=== PATIENT | female | born 1970 | race African-American/Black ===

== ENCOUNTER 2018-10-01 21:28 | Emergency (ER) | payer SELFPAY ==
[~2018-10-01] VITALS: Ht 157.5 cm; Wt 49.9 kg
[2018-10-01 21:40] VITALS: BP 164/95
--- NOTE | 2018-10-01 21:40 | NUR ---
ED Nurse Note: pt ambulated to ed d/t chronic pancreatitis pain. pt states it started on thursday. pt has been experiencing nasuea and vomiting.
--- NOTE | 2018-10-01 21:55 | Emergency Room Report ---
History of Present Illness General Chief Complaint: Abdominal Pain Source: Patient Present Illness HPI This is a 48-year-old female history of diabetes and chronic pancreatitis secondary to alcohol abuse. Last alcohol use was over 2 years ago. She stated she get flareup every 2 months. She presents with chief complaint of abdominal pain and vomiting. This been ongoing for last 3 to 4 days. Unable to keep anything down. Nausea and vomiting. No diarrhea. Pain is 10 out of 10. Localized to the left upper quadrant. Denies any other complaint. Allergies: Coded Allergies: No Known Allergies (Unverified , 10/01/18) Patient History Past Medical History: DM Past Surgical History: other Pertinent Family History: none Social History: Denies: smoking Now: No Immunizations: other Reviewed Nursing Documentation: PMH: Agreed; PSxH: Agreed Nursing Documentation-PMH Hx Diabetes: Yes Hx Gastrointestinal Problems: Yes - PANCREATITIS Review of Systems Eye: Denies: eye pain, blurred vision ENT: Denies: ear pain, nose congestion, throat swelling Respiratory: Denies: cough, shortness of breath Cardiovascular: Denies: chest pain, palpitations Gastrointestinal: Reports: abdominal pain, nausea, vomiting; Denies: diarrhea Musculoskeletal: Denies: back pain, joint pain Skin: Denies: rash Neurological: Denies: headache, numbness Endocrine: Denies: increased thirst, increased urine Hematologic/Lymphatic: Denies: easy bruising All Other Systems: negative except mentioned in HPI Physical Exam Vital Signs Date Time Temp Pulse Resp B/P (MAP) Pulse Ox O2 Delivery O2 Flow Rate FiO2 10/01/18 21:36 98.6 106 16 164/95 (118) 97 Room Air Vitals with high blood pressure Sp02 EP Interpretation: reviewed, normal General Appearance: well appearing, no apparent distress, alert Head: normocephalic, atraumatic Eyes: bilateral eye PERRL, bilateral eye EOMI ENT: hearing grossly normal, normal pharynx Neck: full range of motion, supple, no meningismus Respiratory: chest non-tender, lungs clear, normal breath sounds Cardiovascular #1: regular rate, rhythm, no murmur Gastrointestinal: no mass, no organomegaly, no bruit, non-distended, tenderness - Left upper quadrant, decreased bowel sounds Musculoskeletal: back normal, gait/station normal, normal range of motion Psychiatric: mood/affect normal Skin: warm/dry Medical Decision Making Diagnostic Impression: Primary Impression: Abdominal pain Qualified Codes: R10.84 - Generalized abdominal pain Additional Impressions: Hypertension Qualified Codes: I10 - Essential (primary) hypertension Hyperglycemia due to type 2 diabetes mellitus Qualified Codes: E11.65 - Type 2 diabetes mellitus with hyperglycemia YAKOV (acute kidney injury) ER Course Patient with abdominal pain. labs are unremarkable except for hyperglycemia and may be some prerenal azotemia. Patient felt better now. As of acute abdomen or obstruction. Will discharge home. Lab Results Impression labs with hyperglycemia Last Vital Signs Date Time Temp Pulse Resp B/P (MAP) Pulse Ox O2 Delivery O2 Flow Rate FiO2 10/01/18 21:36 98.6 106 16 164/95 (118) 97 Room Air Status: improved Disposition: HOME, SELF-CARE Condition: Stable Scripts Amlodipine Besylate (Norvasc) 10 Mg Tablet 10 MG ORAL DAILY, #30 TAB Prov: Carlos Oliver MD 10/02/18 Additional Instructions: Follow-up with your doctor in 7 days. Return if worse. Carlos Oliver MD Oct 01, 2018 21:55
[2018-10-01] MEDS ORDERED: Morphine Sulfate 4mg/ml Inj (IV USE ONLY) IVP ONE (22:00)
[2018-10-01 22:29] LABS: BASOPHILS % (AUTO) 1.8 % (0.0-2.0); EOSINOPHILS % (AUTO) 1.5 % (0.0-3.0); HEMATOCRIT 36.8 % (37.0-47.0); HEMOGLOBIN 11.1 G/DL (12.0-16.0); LYMPHOCYTES % (AUTO) 44.6 % (20.0-45.0); MEAN CORPUSCULAR VOLUME 75 FL (80-99); MONOCYTES % (AUTO) 4.9 % (1.0-10.0); NEUTROPHILS % (AUTO) 47.2 % (45.0-75.0); PLATELET COUNT 170 K/UL (150-450); RED BLOOD COUNT 4.92 M/UL (4.20-5.40); RED CELL DISTRIBUTION WIDTH 12.1 % (11.6-14.8); WHITE BLOOD COUNT 7.3 K/UL (4.8-10.8)
--- NOTE | 2018-10-01 22:35 | NUR ---
ED Nurse Note: urine specimen sent to lab
[2018-10-01 22:38] LABS: ANION GAP 11 mmol/L (5-15); BLOOD UREA NITROGEN 20 mg/dL (7-18); CALCIUM 10.2 MG/DL (8.5-10.1); CARBON DIOXIDE 29 MMOL/L (21-32); CHLORIDE 95 MMOL/L (98-107); CREATININE 1.5 MG/DL (0.55-1.30); POTASSIUM 3.4 MMOL/L (3.5-5.1); SODIUM 135 MMOL/L (136-145)
[2018-10-01 22:43] LABS: ALANINE AMINOTRANSFERASE 24 U/L (12-78); ALBUMIN 4.4 G/DL (3.4-5.0); ALBUMIN/GLOBULIN RATIO 1.1 (1.0-2.7); ALKALINE PHOSPHATASE 93 U/L (46-116); ASPARTATE AMINO TRANSFERASE 14 U/L (15-37); BILIRUBIN,TOTAL 0.3 MG/DL (0.2-1.0)
--- NOTE | 2018-10-01 22:45 | NUR ---
ED Nurse Note: per ermd TO, discontinue second 1 L ns order
[2018-10-01 22:56] LABS: APPEARANCE,URINE SLIGHTLY CLOUDY; BILIRUBIN, URINE NEGATIVE (NEGATIVE); COLOR,URINE PALE YELLOW; GLUCOSE, URINE (UA) 4+ (NEGATIVE); KETONES,URINE NEGATIVE (NEGATIVE); LEUKOCYTE ESTERASE ,URINE 1+ (NEGATIVE); NITRITE,URINE NEGATIVE (NEGATIVE); PH,URINE 5 (4.5-8.0); PROTEIN,URINE 2+ (NEGATIVE); UROBILINOGEN,URINE NORMAL MG/DL (0.0-1.0)
[2018-10-01] MEDS ORDERED: Dicyclomine HCl 10mg/5ml oral soln ORAL ONE (23:45)
[2018-10-01] MEDS ORDERED: Lidocaine 2% Visc 15ml soln ORAL ONE (23:45)
[2018-10-01] MEDS ORDERED: Mylanta II UD 30ml ORAL ONE (23:45)
[2018-10-02] MEDS ORDERED: NORVASC10 MG ORAL
[2018-10-02 00:25] VITALS: BP 162/98
--- NOTE | 2018-10-02 00:26 | NUR ---
ER DISCHARGE NOTE: Patient is cleared to be discharged per ERMD, pt is aox4, on room air, with stable vital signs. pt was given dc and prescription instructions, pt was able to verbalize understanding, pt id band and iv site removed without complications. pt is able to ambulate with steady gait. pt took all belongings.
== END 2018-10-02 00:25 | disposition home or self-care (01) ==
LOC: EMR 22:45
DX: R10.84 Generalized abdominal pain (principal); I10 Essential (primary) hypertension; E11.65 Type 2 diabetes mellitus with hyperglycemia; N17.9 Acute kidney failure, unspecified
CPT/HCPCS: 36415; 80053; 80307; 81003; 83690; 85025; 96361; 96374; 96375; 99284; J2270; J2405

== ENCOUNTER 2019-03-04 20:43 | Emergency (ER) | payer BC ==
[~2019-03-04] VITALS: Ht 157.5 cm; Wt 56.7 kg
[~2019-03-04 20:43] MED LIST: NORVASC10 MG ORAL
--- NOTE | 2019-03-04 20:59 | NUR ---
ED Nurse Note: pt walked in c/o epigastric abd pain radiating to right side back with nausea and vomiting since thu, pt reports she has history of chronic pancreatitis and she was taking medications at home which helped but the pain worsen today and reports she cannot take any medication nor food down. pt aA&ox4 gcs=15, skin warm and dry, resp even and unlabored on RA, reports nausea but no active vomiting at this time, vss, ambulatory w/steady gait, will cont monitor. urine specimen obtained, noted dark yellow color.
[2019-03-04] MEDS ORDERED: Morphine Sulfate 4mg/ml Inj (IV USE ONLY) IVP ONE (21:00)
[2019-03-04] MEDS ORDERED: D5NS 1,000 ML IV ONE (21:00)
--- NOTE | 2019-03-04 21:03 | Emergency Room Report ---
History of Present Illness General Chief Complaint: Abdominal Pain Source: Patient Present Illness HPI Patient is a 48-year-old female presents after increased epigastric pain and vomiting. She reports a prior history of chronic pancreatitis. She reports having multiple episodes of nonbloody emesis. She denies any diarrhea. She reports having similar episodes in the past. She denies regular marijuana smoking. Denies any fever. Pain is sharp pain which radiates to her back. She reports this is similar to prior episodes. She reports having some mild change in her discomfort and had admitted been unable to to keep her pain medication down as well as unable to keep her fluids down. She is multiple exacerbations like this in the past. Allergies: Coded Allergies: No Known Allergies (Unverified , 03/04/19) Patient History Past Medical History: see triage record Now: No Reviewed Nursing Documentation: PMH: Agreed; PSxH: Agreed Nursing Documentation-PMH Hx Diabetes: Yes Hx Gastrointestinal Problems: Yes - PANCREATITIS Review of Systems All Other Systems: negative except mentioned in HPI Physical Exam Vital Signs Date Time Temp Pulse Resp B/P (MAP) Pulse Ox O2 Delivery O2 Flow Rate FiO2 03/04/19 20:45 98.4 115 16 84/60 (68) 97 Room Air Sp02 EP Interpretation: reviewed, normal General Appearance: normal inspection, well appearing, no apparent distress, alert, GCS 15 Head: atraumatic ENT: normal ENT inspection, hearing grossly normal, normal voice Neck: normal inspection, full range of motion, supple, no bony tend Respiratory: normal inspection, lungs clear, normal breath sounds, no respiratory distress, no retraction, no wheezing Cardiovascular #1: regular rate, rhythm, no edema Gastrointestinal: normal inspection, normal bowel sounds, non tender, soft, no guarding, no hernia Genitourinary: no CVA tenderness Musculoskeletal: normal inspection, back normal, normal range of motion Neurologic: normal inspection, alert, oriented x3, responsive, flue cleaner III-XII nml as tested, motor strength/tone normal, speech normal Psychiatric: normal inspection, judgement/insight normal, mood/affect normal Medical Decision Making Diagnostic Impression: Primary Impression: Chronic pancreatitis Additional Impression: Dehydration ER Course Patient presented for abdominal pain. Differential diagnosis included but was not limited to anemia, peptic ulcer disease, gastritis, pancreatitis among others. Because of complexity of patient's case laboratory tests and imaging studies were ordered. Patient's symptoms appear to be similar to his symptoms she is had in the past which previously had been diagnosis related to chronic pancreatitis. She does not appear to be in any acute distress but does have some mild tachycardia likely related to dehydration. Patient was given IV fluids.Patient also given IV pain medications as well as antiemetics. Patient appears to be stable for outpatient management. She was advised to follow-up with her primary care physician for recheck. Patient will be given prescription for continued antiemetics as well as acid blockers.Patient was advised to follow-up with her primary care physician to return if any continued vomiting or other concerns. Labs Test 03/04/19 12:15 White Blood Count 6.4 K/UL (4.8-10.8) Red Blood Count 4.99 M/UL (4.20-5.40) Hemoglobin 11.6 G/DL (12.0-16.0) Hematocrit 37.7 % (37.0-47.0) Mean Corpuscular Volume 76 FL (80-99) Mean Corpuscular Hemoglobin 23.2 PG (27.0-31.0) Mean Corpuscular Hemoglobin Concent 30.7 G/DL (32.0-36.0) Red Cell Distribution Width 11.0 % (11.6-14.8) Platelet Count 238 K/UL (150-450) Mean Platelet Volume 6.6 FL (6.5-10.1) Neutrophils (%) (Auto) 46.2 % (45.0-75.0) Lymphocytes (%) (Auto) 43.4 % (20.0-45.0) Monocytes (%) (Auto) 7.2 % (1.0-10.0) Eosinophils (%) (Auto) 1.5 % (0.0-3.0) Basophils (%) (Auto) 1.8 % (0.0-2.0) Urine Color Yellow Urine Appearance Slightly cloudy Urine pH 5 (4.5-8.0) Urine Specific [place] 1.020 (1.005-1.035) Urine Protein 3+ (NEGATIVE) Urine Glucose (UA) 4+ (NEGATIVE) Urine Ketones 1+ (NEGATIVE) Urine Blood Negative (NEGATIVE) Urine Nitrite Negative (NEGATIVE) Urine Bilirubin 1+ (NEGATIVE) Urine Ictotest Negative (NEGATIVE) Urine Urobilinogen 1 MG/DL (0.0-1.0) Urine Leukocyte Esterase Negative (NEGATIVE) Urine RBC 2-4 /HPF (0 - 2) Urine WBC 2-4 /HPF (0 - 2) Urine Squamous Epithelial Cells Many /LPF (NONE/OCC) Urine Bacteria Few /HPF (NONE) Urine HCG, Qualitative Negative (NEGATIVE) Sodium Level 129 MMOL/L (136-145) Potassium Level 5.2 MMOL/L (3.5-5.1) Chloride Level 95 MMOL/L (98-107) Carbon Dioxide Level 34 MMOL/L (21-32) Anion Gap 1 mmol/L (5-15) Blood Urea Nitrogen 20 mg/dL (7-18) Creatinine 1.7 MG/DL (0.55-1.30) Estimat Glomerular Filtration Rate 38.5 mL/min (>60) Glucose Level 289 MG/DL (74-106) Calcium Level 9.3 MG/DL (8.5-10.1) Total Bilirubin 0.5 MG/DL (0.2-1.0) Aspartate Amino Transf (AST/SGOT) 26 U/L (15-37) Alanine Aminotransferase (ALT/SGPT) 20 U/L (12-78) Alkaline Phosphatase 80 U/L (46-116) Troponin I 0.000 ng/mL (0.000-0.056) Total Protein 7.9 G/DL (6.4-8.2) Albumin 4.2 G/DL (3.4-5.0) Globulin 3.7 g/dL Albumin/Globulin Ratio 1.1 (1.0-2.7) Lipase 28 U/L (73-393) Last Vital Signs Date Time Temp Pulse Resp B/P (MAP) Pulse Ox O2 Delivery O2 Flow Rate FiO2 03/04/19 20:45 98.4 115 16 84/60 (68) 97 Room Air Status: improved Disposition: HOME, SELF-CARE Condition: Stable Scripts Omeprazole (OMEPRAZOLE) 20 Mg Capsule. 20 MG ORAL DAILY, #30 CAP Prov: bAel Santoyo MD 03/04/19 Abel Santoyo MD Mar 04, 2019 21:03
[2019-03-04 21:22] LABS: BASOPHILS % (AUTO) 1.8 % (0.0-2.0); EOSINOPHILS % (AUTO) 1.5 % (0.0-3.0); HEMATOCRIT 37.7 % (37.0-47.0); HEMOGLOBIN 11.6 G/DL (12.0-16.0); LYMPHOCYTES % (AUTO) 43.4 % (20.0-45.0); MEAN CORPUSCULAR VOLUME 76 FL (80-99); MONOCYTES % (AUTO) 7.2 % (1.0-10.0); NEUTROPHILS % (AUTO) 46.2 % (45.0-75.0); PLATELET COUNT 238 K/UL (150-450); RED BLOOD COUNT 4.99 M/UL (4.20-5.40); WHITE BLOOD COUNT 6.4 K/UL (4.8-10.8)
[2019-03-04 21:23] VITALS: BP 83/66
[2019-03-04 21:23] LABS: APPEARANCE,URINE SLIGHTLY CLOUDY; BILIRUBIN, URINE 1+ (NEGATIVE); GLUCOSE, URINE (UA) 4+ (NEGATIVE); KETONES,URINE 1+ (NEGATIVE); LEUKOCYTE ESTERASE ,URINE NEGATIVE (NEGATIVE); NITRITE,URINE NEGATIVE (NEGATIVE); PH,URINE 5 (4.5-8.0); PROTEIN,URINE 3+ (NEGATIVE); UROBILINOGEN,URINE 1 MG/DL (0.0-1.0)
[2019-03-04 21:24] LABS: COLOR,URINE YELLOW
--- NOTE | 2019-03-04 21:24 | NUR ---
ED Nurse Note: NOTED PT'S BP 83/66, IV FLUIDS RUNNING PER ERMD ORDER, WILL CONT MONITOR, PT CURRENTLY AWAKE AND ALERT, RESP EVEN AND UNLABORED ON RA.
[2019-03-04 21:33] LABS: ANION GAP 1 mmol/L (5-15); BLOOD UREA NITROGEN 20 mg/dL (7-18); CALCIUM 9.3 MG/DL (8.5-10.1); CARBON DIOXIDE 34 MMOL/L (21-32); CHLORIDE 95 MMOL/L (98-107); CREATININE 1.7 MG/DL (0.55-1.30); SODIUM 129 MMOL/L (136-145)
[2019-03-04 21:34] VITALS: BP 129/77
[2019-03-04 21:38] LABS: ALANINE AMINOTRANSFERASE 20 U/L (12-78); ALBUMIN 4.2 G/DL (3.4-5.0); ALBUMIN/GLOBULIN RATIO 1.1 (1.0-2.7); ALKALINE PHOSPHATASE 80 U/L (46-116); ASPARTATE AMINO TRANSFERASE 26 U/L (15-37); BILIRUBIN,TOTAL 0.5 MG/DL (0.2-1.0)
[2019-03-04 21:40] LABS: POTASSIUM 5.2 MMOL/L (3.5-5.1)
[2019-03-04] MEDS ORDERED: OMEPRAZOLE20 M2 ORAL (21:58)
[2019-03-04] MEDS ORDERED: Dicyclomine HCl 10mg/5ml oral soln ONE (22:10)
[2019-03-04] MEDS ORDERED: Mylanta II UD 30ml ONE (22:10)
--- NOTE | 2019-03-04 22:14 | NUR ---
ED Nurse Note: pt cleared to be d/c per ERMD, pt discharge and aftercare instruction provided w/ prescription sent electronically, pt education done via discussion and handout, pt advised to follow up with pcp or return to ed if changes in condition, vss, ambulatory w/ steady gait, iv d/c and id band removed, pt left w/ all belongings. pt reports feeling better.
[2019-03-04] MEDS ORDERED: Dicyclomine HCl 10mg/5ml oral soln ORAL ONE (22:15)
[2019-03-04 22:16] VITALS: BP 121/82
== END 2019-03-04 22:16 | disposition home or self-care (01) ==
LOC: EMR 21:09
DX: K86.1 Other chronic pancreatitis (principal); E86.0 Dehydration; E11.9 Type 2 diabetes mellitus without complications
CPT/HCPCS: 36415; 80053; 81003; 81025; 83690; 84484; 85025; 93005; 96365; 96375; 99284; J2270; J2405

== ENCOUNTER 2020-05-20 20:28 | Emergency (ER) | payer BC ==
[~2020-05-20] VITALS: Ht 157.5 cm; Wt 45.4 kg
[~2020-05-20 20:28] MED LIST changes: +OMEPRAZOLE20 M2 ORAL
[2020-05-20 20:32] VITALS: BP 116/75
--- NOTE | 2020-05-20 20:44 | Emergency Room Report ---
History of Present Illness General Chief Complaint: Abdominal Pain Source: Patient Present Illness HPI Disclaimer: Please note that this report is being documented using DRAGON technology. This can lead to erroneous entry secondary to incorrect interpretation by the dictating instrument. HPI: 49-year-old female history of chronic pancreatitis presents for abdominal pain. Symptoms present 3 days. She reports epigastric left upper quadrant pain and cramping along with nausea and vomiting. Denies diarrhea or fever. Typical of her chronic pancreatitis flareups. She states she had ERCP or MRCP in March showing persistent ductal issues. No surgery scheduled or stent at this time. Was using Zofran at home without significant relief. Feels somewhat dehydrated. Denies dysuria or hematuria. Denies cough, congestion, chest pain or other symptoms at this time. PMH: Pancreatitis PSH: Reviewed Allergies: Denied Social Hx: Quit alcohol 5 years ago Allergies: Coded Allergies: No Known Allergies (Unverified , 03/04/19) COVID-19 Screening Contact w/high risk pt: No Experienced COVID-19 symptoms?: No COVID-19 Testing performed E[employer]: No Nursing Documentation-PMH Hx Diabetes: Yes Hx Gastrointestinal Problems: Yes - PANCREATITIS Review of Systems All Other Systems: negative except mentioned in HPI Physical Exam Vital Signs Date Time Temp Pulse Resp B/P (MAP) Pulse Ox O2 Delivery O2 Flow Rate FiO2 05/20/20 20:32 98.4 111 20 116/75 (89) 97 Room Air General: Awake and alert, appears uncomfortable HEENT: NC/AT. EOMI. Cardiovascular: RRR. S1 and S2 normal. No murmur appreciated Resp: Normal work of breathing. No cough, wheezing or crackles appreciated Abdomen: Abdomen is soft, nondistended. Tenderness palpation in the epigastrium. No guarding or rebound. Skin: Intact. No abrasions, laceration or rash over the exposed skin MSK: Normal tone and bulk. Moving all extremities. No obvious deformity. Neuro: Awake and alert. Mentating appropriately. Medical Decision Making Diagnostic Impression: Primary Impression: Abdominal pain ER Course 49-year-old female with history of chronic pancreatitis presents for 3 days abdominal pain. Differential includes was not limited to gastritis, gastroenteritis, pancreatitis flareup, cholecystitis, nephrolithiasis, pyelonephritis, UTI among others. Belly is soft. Patient started IV fluids, antiemetics, pain medication. Labs largely within normal limits. Lipase unremarkable. Patient feeling better after receiving medications. She will follow up with her reagent tender helper. Belly remained soft. Stable for outpatient follow-up. Instructed to return with new or worsening symptoms. She understands and agrees with this treatment plan. Laboratory Tests Test 05/20/20 20:50 White Blood Count 6.9 K/UL (4.8-10.8) Red Blood Count 4.34 M/UL (4.20-5.40) Hemoglobin 10.2 G/DL (12.0-16.0) L Hematocrit 34.3 % (37.0-47.0) L Mean Corpuscular Volume 79 FL (80-99) L Mean Corpuscular Hemoglobin 23.5 PG (27.0-31.0) L Mean Corpuscular Hemoglobin Concent 29.8 G/DL (32.0-36.0) L Red Cell Distribution Width 15.1 % (11.6-14.8) H Platelet Count 270 K/UL (150-450) Mean Platelet Volume 7.1 FL (6.5-10.1) Neutrophils (%) (Auto) 47.0 % (45.0-75.0) Lymphocytes (%) (Auto) 43.3 % (20.0-45.0) Monocytes (%) (Auto) 4.9 % (1.0-10.0) Eosinophils (%) (Auto) 3.1 % (0.0-3.0) H Basophils (%) (Auto) 1.7 % (0.0-2.0) Urine Color Yellow Urine Appearance Slightly cloudy Urine pH 5 (4.5-8.0) Urine Specific [place] 1.025 (1.005-1.035) Urine Protein 2+ (NEGATIVE) H Urine Glucose (UA) 3+ (NEGATIVE) H Urine Ketones 1+ (NEGATIVE) H Urine Blood Negative (NEGATIVE) Urine Nitrite Negative (NEGATIVE) Urine Bilirubin 1+ (NEGATIVE) H Urine Ictotest Negative (NEGATIVE) Urine Urobilinogen 1 MG/DL (0.0-1.0) H Urine Leukocyte Esterase 1+ (NEGATIVE) H Urine RBC 0 /HPF (0 - 2) Urine WBC 5-10 /HPF (0 - 2) H Urine Squamous Epithelial Cells Many /LPF (NONE/OCC) H Urine Bacteria Few /HPF (NONE) Urine Mucus Moderate /LPF (NONE/OCC) H Sodium Level 139 MMOL/L (136-145) Potassium Level 4.4 MMOL/L (3.5-5.1) Chloride Level 101 MMOL/L (98-107) Carbon Dioxide Level 28 MMOL/L (21-32) Anion Gap 10 mmol/L (5-15) Blood Urea Nitrogen 21 mg/dL (7-18) H Creatinine 1.3 MG/DL (0.55-1.30) Estimated Glomerular Filtration Rate 52.4 mL/min (>60) Glucose Level 293 MG/DL (74-106) H Calcium Level 8.9 MG/DL (8.5-10.1) Total Bilirubin 0.2 MG/DL (0.2-1.0) Aspartate Amino Transferase (AST) 16 U/L (15-37) Alanine Aminotransferase (ALT) 24 U/L (12-78) Alkaline Phosphatase 74 U/L (46-116) Total Protein 7.5 G/DL (6.4-8.2) Albumin 4.0 G/DL (3.4-5.0) Globulin 3.5 g/dL Albumin/Globulin Ratio 1.1 (1.0-2.7) Lipase 48 U/L (73-393) L Last Vital Signs Date Time Temp Pulse Resp B/P (MAP) Pulse Ox O2 Delivery O2 Flow Rate FiO2 05/20/20 20:32 98.4 111 20 116/75 (89) 97 Room Air Disposition: HOME, SELF-CARE Condition: Improved Herbert Stewart MD May 20, 2020 20:44
[2020-05-20] MEDS ORDERED: Morphine Sulfate 4mg/ml Inj (IV USE ONLY) IVP ONE (20:45)
--- NOTE | 2020-05-20 20:45 | NUR ---
ED Nurse Note: Recieved pt walk in from home with c/o severe abdominal pain x 4 days with nausea and vomiting, tp has hx of pancreatitis, denies alcohol use or any other discomforts, no chest pain or fevers, denies covid exposure, pt immediately assisted to bed and gowning, IV line placed and labs drawn and sent, MD at bedside, will medicate pt and monitor for med effectiveness.
[2020-05-20 21:16] LABS: APPEARANCE,URINE SLIGHTLY CLOUDY; BASOPHILS % (AUTO) 1.7 % (0.0-2.0); BILIRUBIN, URINE 1+ (NEGATIVE); EOSINOPHILS % (AUTO) 3.1 % (0.0-3.0); GLUCOSE, URINE (UA) 3+ (NEGATIVE); HEMATOCRIT 34.3 % (37.0-47.0); HEMOGLOBIN 10.2 G/DL (12.0-16.0); KETONES,URINE 1+ (NEGATIVE); LEUKOCYTE ESTERASE ,URINE 1+ (NEGATIVE); LYMPHOCYTES % (AUTO) 43.3 % (20.0-45.0); MEAN CORPUSCULAR VOLUME 79 FL (80-99); MONOCYTES % (AUTO) 4.9 % (1.0-10.0); NITRITE,URINE NEGATIVE (NEGATIVE); PH,URINE 5 (4.5-8.0); PLATELET COUNT 270 K/UL (150-450); PROTEIN,URINE 2+ (NEGATIVE); RED BLOOD COUNT 4.34 M/UL (4.20-5.40); RED CELL DISTRIBUTION WIDTH 15.1 % (11.6-14.8); UROBILINOGEN,URINE 1 MG/DL (0.0-1.0); WHITE BLOOD COUNT 6.9 K/UL (4.8-10.8)
[2020-05-20 21:24] LABS: COLOR,URINE YELLOW
[2020-05-20] MEDS ORDERED: Metoclopramide 10mg/2ml Inj IVP ONE (21:30)
[2020-05-20 21:33] LABS: CALCIUM 8.9 MG/DL (8.5-10.1); CREATININE 1.3 MG/DL (0.55-1.30); POTASSIUM 4.4 MMOL/L (3.5-5.1)
[2020-05-20 21:37] LABS: ALBUMIN/GLOBULIN RATIO 1.1 (1.0-2.7); BILIRUBIN,TOTAL 0.2 MG/DL (0.2-1.0)
--- NOTE | 2020-05-20 21:55 | NUR ---
ER DISCHARGE NOTE: Patient is cleared to be discharged per ERMD, pt is aox4, on room air, with stable vital signs. pt was given dc instructions, pt was able to verbalize understanding, pt id band and iv site removed without complications. pt is able to ambulate with steady gait. pt took all belongings.
== END 2020-05-20 21:55 | disposition home or self-care (01) ==
LOC: EMR 20:43
DX: R10.9 Unspecified abdominal pain (principal); E11.9 Type 2 diabetes mellitus without complications; Z87.19 Personal history of other diseases of the digestive system
CPT/HCPCS: 36415; 80053; 81003; 83690; 85025; 96361; 96374; 96375; 99284; J2270; J2405; J2765; J7030; S0028